=== PATIENT | female | born 2000 | race Caucasian/White ===

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

== ENCOUNTER 2020-11-28 18:14 | Emergency (ER) | payer OTHER ==
[~2020-11-28] VITALS: Ht 175.3 cm; Wt 144.0 kg
[~2020-11-28 18:14] MED LIST: CLON0.1T PO; FEXO180T81 PO; LORA0.5T PO; LORA0.5T21 PO; NAPR-514 PO; POLY2500 PO; SERT50TA8 PO
[2020-11-28 20:10] VITALS: BP 154/78
--- NOTE | 2020-11-28 20:42 | PHYS DOC ---
Past History Past Medical History: Other Past Surgical History: Tonsillectomy, Other Smoking: Non-smoker, Second-hand Alcohol Use: None Drug Use: None Adult General Chief Complaint Chief Complaint: NOSE FOREIGN BODY HPI HPI Patient is a 19-year-old female, autistic under the care of her grandma who presents with nasal foreign body. Lm states that just before coming to the emergency department they were eating dinner and having baby carrots and the patient put a baby carrier in her right nare. States she does have a history of this and this had to have ENT remove it in the past. Denies any syncope, cough, respiratory issues, nausea, vomiting. Denies any recent travel, illnesses, fevers, cold/flu symptoms. Review of Systems Review of Systems Review of systems otherwise unremarkable except for noted in HPI Allergies Allergies Allergies Coded Allergies Type Severity Reaction Last Updated Verified sweet potato Allergy Unknown 06/30/19 Yes Physical Exam Physical Exam Constitutional: Well developed, well nourished, no acute distress, non-toxic appearance. [] HENT: Normocephalic, atraumatic, bilateral external ears normal, oropharynx moist, no oral exudates, nose normal. [] On exam of bilateral nares, left nare patent with no blood. Right nare with some bleeding and appears to be obstructed as no airflow when closing opposite nare but no obvious foreign body seen. Eyes: PERRLA, EOMI, conjunctiva normal, no discharge. [] Neck: Normal range of motion, no tenderness, supple, no stridor. [] Cardiovascular:Heart rate regular rhythm, no murmur [] Lungs & Thorax: Bilateral breath sounds clear to auscultation [] Skin: Warm, dry, no erythema, no rash. [] Extremities: No tenderness, no cyanosis, no clubbing, ROM intact, no edema. [] Neurologic: Alert and oriented X 3, normal motor function, normal sensory function, no focal deficits noted. [] Psychologic: Autistic. Anxious and tearful at times, most likely due to fear otherwise consolable by grandma, and cell phone Current Patient Data Vital Signs Vital Signs Date Time Temp Pulse Resp B/P (MAP) Pulse Ox O2 Delivery O2 Flow Rate FiO2 11/28/20 20:10 98.2 110 16 154/78 (103) 98 Room Air EKG EKG [] Radiology/Procedures Radiology/Procedures [] Heart Score Risk Factors: Risk Factors: DM, Current or recent (<one month) smoker, HTN, HLP, family history of CAD, obesity. Risk Scores: Risk Factors: DM, Current or recent (<one month) smoker, HTN, HLP, family history of CAD, obesity. Course & Med Decision Making Course & Med Decision Making Patient is a 19-year-old female, autistic who presents with lm for putting baby ^/foreign body in right nare Vital signs initially notable for tachycardia and hypertension which, is most likely secondary to fear as they did improve while in the ED. Physical exam noted above. On examination of nares there was some blood in the right nare and when closing the left nare patient was unable to breathe through the right nare suggesting o bstruction. However on nasal speculum exam foreign body was unable to be visualized and patient was very apprehensive, unable to sit still and cry during the exam. Patient most likely needs some type of procedural sedation, and ENT evaluation as being unable to visualize a foreign body, the patient's autism, severe obesity and medications that she is on would be better evaluated by ENT in an institution and also has anesthesia given concerns over procedural sedation and airway. Discussed patient with ENT and transfer doc at [facility] who felt this was a reasonable transfer and accepted the patient. Discussed these findings with shobha who verbalized understanding and agreed with plan of transfer to [facility]. [] Dragon Disclaimer Dragon Disclaimer This electronic medical record was generated, in whole or in part, using a voice recognition dictation system. Departure Departure: Impression: Primary Impression: Nasal foreign body Disposition: 02 DC/TRF OTHER SHORT TERM HOS Condition: STABLE Referrals: CHAYITO LANCE MD (PCP) Additional Instructions: Your child was accepted at [facility] by the ENT and transfer physician. As discussed please go to [facility] emergency department The the address is [address] [place] [address] The phone number is [phone] KATELYN LEDESMA MD Nov 28, 2020 20:42
== END 2020-11-28 20:45 | disposition short-term general hospital (02) ==
LOC: ER 18:14
DX: T17.1XXA Foreign body in nostril, initial encounter (principal); Z77.22 Contact with and (suspected) exposure to environmental tobacco smoke (acute) (chronic); Z91.018 Allergy to other foods; X58.XXXA Exposure to other specified factors, initial encounter; Y93.89 Activity, other specified; Y92.89 Other specified places as the place of occurrence of the external cause; Y99.8 Other external cause status
CPT/HCPCS: 99285-25

== ENCOUNTER → 2021-10-09 | Outpatient (CLI) | payer OTHER ==
[~2021-10-09] MED LIST changes: +SERT-268 PO; -SERT50TA8 PO
[2021-10-09 11:20] LABS: ALBUMIN 3.1 g/dL (3.4-5.0); ALBUMIN/GLOBULIN RATIO 0.7 (1.0-1.7); ALK PHOS 130 U/L (46-116); ALT (SGPT) 18 U/L (14-59); ANION GAP 14 (6-14); AST (SGOT) 14 U/L (15-37); BLOOD UREA NITROGEN 12 mg/dL (7-20); BUN/CREATININE RATIO 15 (6-20); CALCIUM 8.9 mg/dL (8.5-10.1); CARBON DIOXIDE 20 mmol/L (21-32); CHLORIDE 104 mmol/L (98-107); CREATININE 0.8 mg/dL (0.6-1.0); GFR 91.4; GLUCOSE 148 mg/dL (70-99); SODIUM 138 mmol/L (136-145); TOTAL BILIRUBIN 0.4 mg/dL (0.2-1.0); TOTAL PROTEIN 7.7 g/dL (6.4-8.2)
[2021-10-09 11:45] LABS: BASO # 0.1 x10^3/uL (0.0-0.2); BASO % 1 % (0-3); EOS # 0.1 x10^3/uL (0.0-0.7); EOS % 1 % (0-3); HEMATOCRIT 42.2 % (36.0-47.0); LYMPH % 34 % (24-48); MEAN CORPUSCULAR HEMOGLOBIN 28 pg (25-35); MEAN CORPUSCULAR HGB CONC 33 g/dL (31-37); MEAN CORPUSCULAR VOLUME 84 fL (79-100); MONO # 0.3 x10^3/uL (0.0-1.1); MONO % 4 % (0-9); NEUT # 5.3 x10^3uL (1.8-7.7); NEUT % 61 % (31-73); PLATELET COUNT 285 x10^3/uL (140-400); RED BLOOD COUNT 5.01 x10^6/uL (3.50-5.40); RED CELL DISTRIBUTION WIDTH 14.7 % (11.5-14.5); WHITE BLOOD COUNT 8.8 x10^3/uL (4.0-11.0)
[2021-10-09 12:10] LABS: VAL ACID 30 mcg/mL (50-100)
== END ==
LOC: LAB 10:25
PROVIDERS: ATTEND Clinical Nurse Specialist Psychiatric/Mental Health, Adult
DX: Z79.899 Other long term (current) drug therapy (principal)
CPT/HCPCS: 36415; 80053; 80164; 82140; 85025

== ENCOUNTER 2022-01-25 11:35 | Emergency (ER) | payer OTHER ==
[~2022-01-25] VITALS: Ht 165.1 cm; Wt 140.6 kg
--- NOTE | 2022-01-25 12:33 | RAD ---
XR EXAM OF FACIAL BONES, XR CHEST 2V, XR NECK SOFT TISSUE, XR ABDOMEN 1V History: Foreign body via nose, possibly swallowed. Lego left nostril. Comparison: Acute abdominal series 04/12/2017 Technique: 2 views of the face. Lateral view of the neck soft tissues. PA and lateral views of the ch est. Supine view of the abdomen and supine view the pelvis. Findings: No radiopaque foreign body is identified in the face, neck, chest, abdomen or pelvis. No prevertebral soft tissue swelling. The airways are patent. The lungs are adequately and symmectrically inflated. No airspace consolidation, pleural effusion or pneumothorax. The cardiomediastinal silhoutte and pulmonary vasculature are within normal limits. Sof t tissues and osseous structures are unremarkable. Nonobstructive bowel gas pattern. No pneumoperitoneum. No abnormal abdominal calcifications. Impression: 1. No radiopaque foreign body in the face, neck, chest, abdomen or pelvis. A plastic lego piece may not be readily visualized by xray if present. 2. No acute findings. Electronically signed by: Riley Barton MD (01/25/2022 12:31 PM) [id number]
--- NOTE | 2022-01-25 12:52 | PHYS DOC ---
Past History Past Medical History: Other Additional Past Medical Histor: Intellectual disability Past Surgical History: Tonsillectomy Additional Past Surgical Histo: ear tubes Smoking: Non-smoker, Second-hand Alcohol Use: None Drug Use: None General Adult EDM: Chief Complaint: FOREIGN BODY HPI: HPI: Patient is a 21 year old female with past medical history of intellectual disability who presents with report of foreign body in the left nostril. Patient's grandmother takes care of her, and provides history. Grandmother states that she was out of the home until about midnight last night. Patient reported to her that she put a small white Lego in her left nostril. Today, patient states "it went down." When asked if she swallowed the Lego, she responds affirmatively. Grandmother states that she can get anxious and agitated when in the hospital, so she gave her an Ativan prior to arrival. Celeste booth is cooperative and answers all questions to the best of her ability. She denies pain or any other complaints. Review of Systems: Review of Systems: ROS negative or noncontributory except as mentioned in HPI. Allergies: Allergies: Allergies Coded Allergies Type Severity Reaction Last Updated Verified sweet potato Allergy Unknown 01/25/22 Yes Physical Exam: PE: Constitutional: Well developed, well nourished, no acute distress, non-toxic appearance. HENT: Normocephalic, atraumatic, bilateral external ears normal, oropharynx moist, no oral exudates, tonsils surgically absent, external nose without deformity or discharge, bilateral nares without foreign body or traumatic injury appreciated. Eyes: EOMI, conjunctiva normal, no discharge. Neck: Normal range of motion, no tenderness, supple, no stridor. Cardiovascular: Elevated heart rate with regular rhythm, no obvious murmur. Lungs & Thorax: Bilateral breath sounds clear to auscultation. Abdomen: Bowel sounds normal, soft, no tenderness, no masses, no pulsatile masses. Skin: Warm, dry, no erythema, no rash. Neurologic: Alert and oriented consistent with baseline, normal motor function, normal sensory function, no focal deficits noted. Current Patient Data: Vital Signs: Vital Signs Date Time Temp Pulse Resp B/P (MAP) Pulse Ox O2 Delivery O2 Flow Rate FiO2 01/25/22 13:00 110 18 147/98 (114) 98 Room Air 01/25/22 11:57 98.2 124 18 159/103 121 96 Room Air Radiology/Procedures: Radiology/Procedures: XR EXAM OF FACIAL BONES, XR CHEST 2V, XR NECK SOFT TISSUE, XR ABDOMEN 1V History: Foreign body via nose, possibly swallowed. Lego left nostril. Comparison: Acute abdominal series 04/12/2017 Technique: 2 views of the face. Lateral view of the neck soft tissues. PA and lateral views of the chest. Supine view of the abdomen and supine view the pelvis. Findings: No radiopaque foreign body is identified in the face, neck, chest, abdomen or pelvis. No prevertebral soft tissue swelling. The airways are patent. The lungs are adequately and symmectrically inflated. No airspace consolidation, pleural effusion or pneumothorax. The cardiomediastinal silhoutte and pulmonary vasculature are within normal limits. Soft tissues and osseous structures are unremarkable. Nonobstructive bowel gas pattern. No pneumoperitoneum. No abnormal abdominal calcifications. Impression: 1. No radiopaque foreign body in the face, neck, chest, abdomen or pelvis. A plastic lego piece may not be readily visualized by xray if present. 2. No acute findings. Electronically signed by: Riley Barton MD (01/25/2022 12:31 PM) [id number] Heart Score: C/O Chest Pain: No Course & Med Decision Making: Course & Med Decision Making Pertinent Labs and Imaging studies reviewed. (See chart for details) Dragon Disclaimer: [place] Disclaimer: This electronic medical record was generated, in whole or in part, using a voice recognition dictation system. Departure Departure: Impression: Primary Impression: Suspected ingested foreign body not found after observation Additional Impression: History of intellectual disability Disposition: 01 HOME / SELF CARE / HOMELESS Condition: STABLE Referrals: CHAYITO LANCE MD (PCP) Patient Instructions: Swallowed Foreign Body, Adult, [id number] Additional Instructions: EMERGENCY DEPARTMENT GENERAL DISCHARGE INSTRUCTIONS Thank you for coming to [facility] (ED) today and trusting us with you care. We trust that you had a positive experience in our Emergency Department. If you wish to speak to the department management, you may call the director at [phone]. YOUR FOLLOW UP INSTRUCTIONS ARE FOLLOWS: 1. Follow up with your primary care doctor. If you do not have a primary doctor, please ask for a resource list of physicians or clinics that may be able to assist you with follow up care. 2. The emergency provider has interpreted your imaging studies, if any were ordered. The radiology billing collections specialist also reviewed them. If there is a change in the findings, you will be notified in 48 hours when at all possible. 3. If a lab test or culture has been done, your results will be reviewed and you will be notified if you need a change in treatment. 4. Follow instructions verbalized to you and refer to the printouts if needed. ADDITIONAL INSTRUCTIONS AND INFORMATION: 1. Your care today has been supervised by a physician who is specially trained in emergency care. Many problems require more than one evaluation for a complete diagnosis and treatment. We recommend that you schedule your follow up appointment as recommended to ensure complete treatment of you illness or injury. If you are unable to obtain follow up care and continue to have a problem, or if your condition worsens, we recommend that you return to the ED. 2. We are not able to safely determine your condition over the phone nor are we able to give sound medical advice over the phone. For these safety reasons, if you call for medical advice we will ask you to come to the ED for further evaluation. 3. If you have any questions regarding these discharge instructions please call the ED at [phone]. SAFETY INFORMATION: In the interest of safety, wellness, and injury prevention; we encourage you to wear your seat belt, if you smoke; quite smoking, and we encourage family to use a protective helmet for bicycling and other sporting events that present an increased risk for head injury. IF YOUR SYMPTOMS WORSEN OR NEW SYMPTOMS DEVELOP, OR YOU HAVE CONCERNS ABOUT YOUR CONDITION; OR IF YOUR CONDITION WORSENS WHILE YOU ARE WAITING FOR YOUR FOLLOW UP APPOINTMENT; EITHER CONTACT YOUR PRIMARY CARE DOCTOR, THE PHYSICIAN WHOSE NAME AND NUMBER YOU WERE GIVEN, OR RETURN TO THE ED IMMEDIATELY. YAYA NAQVI Jan 25, 2022 12:52
[2022-01-25 13:00] VITALS: BP 147/98
== END 2022-01-25 13:02 | disposition home or self-care (01) ==
LOC: ER 11:35
DX: Z71.1 Person with feared health complaint in whom no diagnosis is made (principal); Z77.22 Contact with and (suspected) exposure to environmental tobacco smoke (acute) (chronic); F79 Unspecified intellectual disabilities; Z91.018 Allergy to other foods
CPT/HCPCS: 70140; 70360; 71046; 74018; 99284